=== PATIENT | female | born 1940 | race Caucasian/White ===

== ENCOUNTER 2018-06-16 09:25 | Outpatient (CLI) | payer OTHER | END 2018-06-16 20:38 | disposition home or self-care (01) | LOC: SMA 09:25 | PROVIDERS: ATTEND Family Medicine | DX: Z12.31 Encounter for screening mammogram for malignant neoplasm of breast (principal) | CPT/HCPCS: 77067 ==

== ENCOUNTER 2020-06-01 11:49 | Outpatient (CLI) | payer OTHER | END 2020-06-01 20:56 | disposition home or self-care (01) | LOC: SMA 11:49 | PROVIDERS: ATTEND Family Medicine | DX: R92.8 Other abnormal and inconclusive findings on diagnostic imaging of breast (principal) | CPT/HCPCS: 77066 ==